=== PATIENT | female | born 1985 | race Caucasian/White ===

== ENCOUNTER 2021-05-03 10:30 | Emergency (ER) | payer MEDICAID, SELFPAY ==
--- NOTE | 2021-05-03 | ECG_ITS ---
Test Reason : CHEST PAIN Blood Pressure : / mmHG Vent. Rate : 073 BPM Atrial Rate : 073 BPM P-R Int : 168 ms QRS Dur : 076 ms QT Int : 390 ms P-R-T Axes : 049 033 026 degrees QTc Int : 429 ms Normal sinus rhythm Normal ECG No previous ECGs available Referred By: Brando Baker Electronically Signed By:MARELY SMITH
--- NOTE | ~2021-05-03 | XR_ITS ---
EXAMINATION: XR CHEST CLINICAL INFORMATION: Chest pain COMPARISON: None TECHNIQUE: 2 views of the chest were obtained. FINDINGS: The lungs are clear. There is no pneumothorax, pleural reaction, airspace consolidation, or effusion. The heart is normal in size. The costophrenic sulci are clear. The hilar and mediastinal contours are normal. There is a mild dextrocurvature lower thoracic spine. XR/XR chest 2V IMPRESSION: Unremarkable examination.
[2021-05-03 11:27] VITALS: BP 150/105; PULSE 81; RESP 18; TEMP 37.2; O2SAT 100; BMI 25.8
[2021-05-03 11:43] LABS: Glucose Urine UA NEG (NEG); Leukocyte Esterase Urine NEG (NEG); Nitrite Urine NEG (NEG); UACC Culture Trigger NO; Urine Blood TRACE (NEG); Urine Ketones NEG (NEG); Urine Protein NEG (NEG-TRACE)
--- NOTE | 2021-05-03 11:46 | ED_ITS ---
HPI - Chest Pain General Chief Complaint: Chest Pain Stated Complaint: CHEST PAIN Time Seen by Provider: 05/03/21 11:36 Source: patient Mode of arrival: ambulatory Limitations: no limitations History of Present Illness HPI narrative: With 35-year-old female presents emergency department complaining of chest pain. Patient states she has recently lost her father about 2 months ago from heart attack. She states that she has a history of heart attack and no other history of sudden . She denies cough or fever but states the past states she has had epigastric pain and burning. Patient seems to bland diet and has tried Tums with no relief she denies cough fever falls headache. She states she did start antidepressant recently that feels like she can not catch her breath and feels like her chest is caving at times. Patient states that she was camping a week and felt the sensation has not seen has not talked to anyone about this. After finishing the exam she states that she is also on her. Has had heavy periods for past 6 months. She has scheduled follow-up with her nib adjuster and just has not. MD complaint: chest heaviness Onset (ago): day(s) Timing of current episode: constant Prior episodes: No Related Data Allergies Allergy/AdvReac Type Severity Reaction Status Date / Time No Known Allergies Allergy Verified 05/03/21 11:31 Review of Systems Review of Systems: Review of systems: General: Patient denies any fever chills recent illness or falls Musculoskeletal: Denies back pain or body aches or other injuries HEENT: denies headache, runny nose, ear pain Respiratory: denies shortness of breath, cough Cardiovascular: no chest pain or palpitations : denies dysuria, frequency Abdomen: no nausea vomiting denies abdominal pain Extremities: no swelling, no pain Skin: no diaphoresis Yes all other systems are reviewed and are negative PMFSH Past Medical History Medical History (Updated 05/03/21 @ 13:09 by Brando Baker DO) No known health problems Social History Social History Alcohol intake: never Patient Tobacco Use Status: Never used Tobacco Use of substances other than those prescribed or required for medical reasons: No Advance Directives: No Advance Directives Information Provided: No Patient : No Physical Exam Vital Signs: Vital Signs: Last Vital Signs Temp 99 F 05/03/21 11:27 Pulse 88 05/03/21 12:50 Resp 12 05/03/21 12:50 BP 153/108 H 05/03/21 12:50 Pulse Ox 100 05/03/21 12:50 Body Mass Index 25.8 General: Well-appearing well-nourished in no signs of distress HEENT: Normocephalic atraumatic Neck: No signs of JVD, no masses no tenderness or lymphadenopathy Cardiovascular: Regular rate and rhythm Respiratory: Clear to auscultation bilaterally Abdomen: Soft nontender no masses. Extremities: Normal pedal pulses no signs of edema Skin: Dry warm no rashes Back: No tenderness full ROM MDM - Chest Pain MDM Narrative Medical decision making narrative: Patient likely with breathing and depression in addition to her chest pain she is complaining of 6 months of vaginal bleeding as well I do not think the patient is anemic she has normal vital signs and since the vaginal bleeding is going for past 6 months she has had several. Today do not think the patient warrants an ultrasound or pelvic exam at this time. She already has follow-up for that. I will workup for her chest pain sounds like this could be peptic ulcer disease or gastric ulcer disease as well as a depression little rule other causes including getting lipase pancreatitis checking LFTs getting troponin. With she is perk negative I do not think this patient is having PE. 1306 labs are all unremarkable patient refused the Ativan that was offered to her. 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 X-ray and labs were okay I explained all of his lab results with the patient she is feeling slightly better will have her follow up with primary care doctor. Differential Diagnosis Differential diagnosis: Likely pneumothorax, stable angina and chest pain Lab Data Result diagrams: 05/03/21 12:03 05/03/21 12:03 Labs: Lab Results 05/03/21 05/03/21 05/03/21 Range/Units 11:36 11:36 12:03 WBC 7.0 (4.8-10.8) X10*3/uL RBC 4.84 (4.20-5.50) X10*6/uL Hgb 14.5 (12.0-16.0) g/dl Hct 43.1 (37-47) % MCV 89.0 (80-98) fL MCH 30.0 (27.0-33.0) pg MCHC 33.6 (31.0-35.0) g/dl RDW 12.2 (11.0-16.0) % Plt Count 263 (160-400) X10*3/uL MPV 11.0 (9.4-12.3) fL Immature Gran % (Auto) 0.3 (0.0-0.4) % Neut % (Auto) 63.2 (45-73) % Lymph % (Auto) 28.5 (20-40) % Collin % (Auto) 6.6 (2-11) % Eos % (Auto) 1.0 (0-4) % Baso % (Auto) 0.4 (0-2) % Lymph # (Auto) 2.0 (1.2-4.9) X10*3/uL Collin # (Auto) 0.5 (0.1-1.2) X10*3/uL Eos # (Auto) 0.1 (0.0-0.4) X10*3/uL Baso # (Auto) 0.0 (0.0-0.2) X10*3/uL Abs Immat Gran (auto) 0.02 (0.00-0.03) X10*3/uL Absolute Neuts (auto) 4.4 (2.0-8.3) X10*3/uL Absolute Nucleated RBC 0.000 (0.0-0.012) X10*3/uL Nucleated RBC % (auto) 0.0 (0.0-0.2) /100WBC Sodium (135-145) mmol/L Potassium (3.3-5.1) mmol/L Chloride (96-108) mmol/L Carbon Dioxide (22-29) mmol/L Anion Gap (12-20) BUN (9-16) mg/dL Creatinine (0.5-1.4) mg/dL Estim Creat Clear Calc Estimated GFR Random Glucose (60-115) mg/dL Calcium (8.4-10.2) mg/dL Total Bilirubin (0.0-1.0) mg/dL Direct Bilirubin (0.0-0.5) mg/dL AST (5-31) U/L ALT (0-31) U/L Alkaline Phosphatase (39-117) U/L Troponin I High Sens (<3.5-17.0) ng/L Total Protein (6.5-8.0) g/dL Albumin (3.5-5.0) g/dL Lipase (8-78) U/L Urine Color YELLOW Urine Appearance CLEAR Urine pH 6.0 (5.0-8.0) Ur Specific [place] 1.010 (1.005-1.025) Urine Protein NEG (NEG-TRACE) MG/DL Urine Glucose (UA) NEG (NEG) MG/DL Urine Ketones NEG (NEG) MG/DL Urine Blood TRACE (NEG) Urine Nitrite NEG (NEG) Ur Leukocyte Esterase NEG (NEG) Urine RBC 0-2 (0) /HPF Urine WBC 0-2 (0-4) /HPF Ur Squamous Epith Cells TRACE /LPF Urine Bacteria NONE /LPF Urine Test NEGATIVE (NEGATIVE) 05/03/21 05/03/21 Range/Units 12:03 12:03 WBC (4.8-10.8) X10*3/uL RBC (4.20-5.50) X10*6/uL Hgb (12.0-16.0) g/dl Hct (37-47) % MCV (80-98) fL MCH (27.0-33.0) pg MCHC (31.0-35.0) g/dl RDW (11.0-16.0) % Plt Count (160-400) X10*3/uL MPV (9.4-12.3) fL Immature Gran % (Auto) (0.0-0.4) % Neut % (Auto) (45-73) % Lymph % (Auto) (20-40) % Collin % (Auto) (2-11) % Eos % (Auto) (0-4) % Baso % (Auto) (0-2) % Lymph # (Auto) (1.2-4.9) X10*3/uL [place]lin # (Auto) (0.1-1.2) X10*3/uL Eos # (Auto) (0.0-0.4) X10*3/uL Baso # (Auto) (0.0-0.2) X10*3/uL Abs Immat Gran (auto) (0.00-0.03) X10*3/uL Absolute Neuts (auto) (2.0-8.3) X10*3/uL Absolute Nucleated RBC (0.0-0.012) X10*3/uL Nucleated RBC % (auto) (0.0-0.2) /100WBC Sodium 141 (135-145) mmol/L Potassium 3.8 (3.3-5.1) mmol/L Chloride 106 (96-108) mmol/L Carbon Dioxide 26 (22-29) mmol/L Anion Gap 13 (12-20) BUN 8 L (9-16) mg/dL Creatinine 0.69 (0.5-1.4) mg/dL Estim Creat Clear Calc 120.1 Estimated GFR > 60 Random Glucose 89 (60-115) mg/dL Calcium 9.6 (8.4-10.2) mg/dL Total Bilirubin 0.8 (0.0-1.0) mg/dL Direct Bilirubin 0.2 (0.0-0.5) mg/dL AST 22 (5-31) U/L ALT 19 (0-31) U/L Alkaline Phosphatase 63 (39-117) U/L Troponin I High Sens < 3.5 (<3.5-17.0) ng/L Total Protein 6.9 (6.5-8.0) g/dL Albumin 4.3 (3.5-5.0) g/dL Lipase 25 (8-78) U/L Urine Color Urine Appearance Urine pH (5.0-8.0) Ur Specific [place] (1.005-1.025) Urine Protein (NEG-TRACE) MG/DL Urine Glucose (UA) (NEG) MG/DL Urine Ketones (NEG) MG/DL Urine Blood (NEG) Urine Nitrite (NEG) Ur Leukocyte Esterase (NEG) Urine RBC (0) /HPF Urine WBC (0-4) /HPF Ur Squamous Epith Cells /LPF Urine Bacteria /LPF Urine Test (NEGATIVE) ECG Data Rate 73 nsr normal intervals no signs of ischemia: Attestation: I personally reviewed and interpreted this ECG as follows: (Rate 73 nsr normal intervals no signs of ischemia) Scores Heart Score History: -0- slightly suspicious Age: -0- < or = 45 Risk factory: -0- no risk factors known Troponin: -0- < or = normal limit Discharge Plan Discharge Clinical Impression: Chest pain Patient Disposition: Home, Self-Care Instructions: Chest Pain (ED) Additional Instructions: Please call follow-up with her doctor your x-ray and labs are all unremarkable evening team to try Pepcid and Maalox at home. If you have any further concerns please do not hesitate to come back to the emergency department.
[2021-05-03 12:04] LABS: Appearance Urine CLEAR; Color Urine YELLOW; UPreg QC Valid YES; Urine Pregnancy NEGATIVE (NEGATIVE)
[2021-05-03] MEDS: Lactated Ringers 1,000 ML 999 ML IV (12:04)
[2021-05-03 12:07] LABS: RBC Urine 0-2 /HPF (0); Squamous Epithelial Cell Urine TRACE /LPF; WBC Urine 0-2 /HPF (0-4)
[2021-05-03 12:08] LABS: MANUAL DIFF FLAG NO
[2021-05-03] MEDS: Magnesium Hydrox/Alum Hydrox 30 ML ORAL.SUSP PO (12:10)
[2021-05-03] MEDS: Famotidine/PF 20 MG/2 ML VIAL IVPUSH (12:10)
[2021-05-03 12:23] LABS: Basophils Percent Auto 0.4 % (0-2); Eosinophils Absolute Auto 0.1 X10*3/uL (0.0-0.4); Hematocrit 43.1 % (37-47); Hemoglobin 14.5 g/dl (12.0-16.0); Imm Gran Abs Auto 0.02 X10*3/uL (0.00-0.03); Imm Gran Pct Auto 0.3 % (0.0-0.4); Lymphocytes Percent Auto 28.5 % (20-40); Mean Corpuscular HGB Conc 33.6 g/dl (31.0-35.0); Monocytes Absolute Auto 0.5 X10*3/uL (0.1-1.2); Monocytes Percent Auto 6.6 % (2-11); Neutrophils Absolute Auto 4.4 X10*3/uL (2.0-8.3); Neutrophils Percent Auto 63.2 % (45-73); Platelet Count 263 X10*3/uL (160-400); Red Blood Count 4.84 X10*6/uL (4.20-5.50); Red Cell Distribution Width 12.2 % (11.0-16.0)
[2021-05-03 12:30] LABS: Alanine Aminotransferase 19 U/L (0-31); Albumin Level 4.3 g/dL (3.5-5.0); Alkaline Phosphatase 63 U/L (39-117); Anion Gap 13 (12-20); Aspartate Amino Transferase 22 U/L (5-31); Bilirubin Direct 0.2 mg/dL (0.0-0.5); Bilirubin Total 0.8 mg/dL (0.0-1.0); Blood Urea Nitrogen 8 mg/dL (9-16); Calcium 9.6 mg/dL (8.4-10.2); Carbon Dioxide 26 mmol/L (22-29); Chloride 106 mmol/L (96-108); Creatinine Clr Calc Pharmacy 120.1; Estimated Glomerular Filt Rate > 60; Glucose Random 89 mg/dL (60-115); Lipase 25 U/L (8-78); Potassium 3.8 mmol/L (3.3-5.1); Sodium 141 mmol/L (135-145); Total Protein 6.9 g/dL (6.5-8.0)
[2021-05-03 12:35] LABS: Troponin-I High Sensitivity < 3.5 ng/L (<3.5-17.0)
[2021-05-03 12:50] VITALS: BP 153/108; PULSE 83; PULSE 88; RESP 12; O2SAT 100
== END 2021-05-03 13:43 | disposition home or self-care (01) ==
PROVIDERS: Emergency Provider Student in an Organized Health Care Education/Training Program; PCP Internal Medicine
DX: R07.9 Chest pain, unspecified (principal); N92.0 Excessive and frequent menstruation with regular cycle
CPT/HCPCS: 36415; 71046; 80048; 80076; 81001; 81003; 81025; 83690; 84484; 85025; 93005; 96361; 96374; 96375; 99284; 99285

== ENCOUNTER 2021-07-06 14:15 | Outpatient (REF) | payer MEDICAID, SELFPAY | END 2021-07-06 14:16 | disposition home or self-care (01) | LOC: HO.HMGCLDS 14:15 | PROVIDERS: PCP Internal Medicine; Visit Provider Internal Medicine | DX: Z20.822 Contact with and (suspected) exposure to COVID-19 (principal) | CPT/HCPCS: C9803; U0003; U0005 ==

== ENCOUNTER 2021-08-15 10:04 | Emergency (ER) | payer MEDICAID, SELFPAY ==
--- NOTE | ~2021-08-15 | XR_ITS ---
EXAMINATION: XR CHEST CLINICAL INFORMATION: Cough and fever COMPARISON: 05/03/2021 TECHNIQUE: Frontal view of the chest was obtained. FINDINGS: No significant abnormality is noted involving the heart, lungs, mediastinum, bony thorax or soft tissues. XR/XR chest 1V IMPRESSION: Unremarkable examination.
[2021-08-15 10:10] VITALS: BP 125/97; PULSE 91; RESP 16; TEMP 36.8; O2SAT 93; BMI 10.7
--- NOTE | 2021-08-15 10:35 | ED_ITS ---
HPI - General Adult General Chief complaint: General Medical Stated complaint: body aches Time Seen by Provider: 08/15/21 10:27 Source: patient Mode of arrival: ambulatory Limitations: no limitations History of Present Illness HPI narrative: 36 yo female here with complaints of gen weakness, cough, runny nose since Monday. Initially had fever up to 102 (first 2 days) now resolved. No chest pain, shortness of breath, vomiting, diarrhea, abdominal pain. Received J&J vaccine. 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 + Related Data Allergies Allergy/AdvReac Type Severity Reaction Status Date / Time No Known Allergies Allergy Verified 05/03/21 11:31 Review of Systems Review of Systems: Yes all other systems are reviewed and are negative Constitutional: Constitutional: Reports no additional constitutional complaints, Reports body ache(s), Reports chills, Reports fever(s), Denies headache(s) and Reports weakness Eyes: Eyes: Reports no additional eye complaints and Denies change in vision ENT: Reports system reviewed and no additional complaints, except as documented, Denies dizziness, Denies headache(s), Reports nasal congestion, Reports nasal discharge and Denies neck pain Cardiovascular: Cardiovascular: Reports no additional cardiovascular complain ts, Denies chest pain, Denies leg edema and Denies dyspnea Respiratory: Respiratory: Reports no additional respiratory complaints, Reports cough and Denies dyspnea Gastrointestinal: Gastrointestinal: Reports no additional gastrointestinal complaints, Denies abdominal pain, Denies diarrhea, Denies nausea and Denies vomiting Genitourinary: Genitourinary: Reports no additional female genitourinary complaints and Denies urinary incontinence Musculoskeletal: Musculoskeletal: Reports no additional musculoskeletal complaints, Denies back pain, Denies arthralgias, Denies joint swelling, Denies neck pain, Denies numbness and Denies tingling Integumentary/Breasts: Skin/Breast: Reports system reviewed and no additional complaints, except as docu and Denies rash Neurologic: Reports system reviewed and no additional complaints, except as documented, Denies Abnormal speech present, Denies dizziness, Denies headache(s), Denies numbness, Denies tingling and Reports weakness PMFSH Past Medical History Attestation statement: The following information was validated with the patient. Source: old records reviewed and nursing notes reviewed Medical History No known health problems Social History Social History Alcohol intake: never Patient Tobacco Use Status: Never used Tobacco Advance Directives: No Advance Directives Information Provided: No Physical Exam Vital Signs: Vital Signs: Last Vital Signs Temp 98.2 F 08/15/21 10:10 Pulse 95 08/15/21 10:51 Resp 16 08/15/21 10:10 BP 125/97 H 08/15/21 10:10 Pulse Ox 100 08/15/21 10:51 BMI result Body Mass Index 10.7 Const: General: cooperative, healthy appearing, comfortable and no acute distress Orientation/consciousness: patient oriented x3 Limitations: no limitations HENMT: Head: Yes normal to inspection Ears: hearing grossly normal bilaterally and TM's normal bilaterally General nose exam: Normal external nose present Face and sinus: Yes normal facial exam Mouth: Normal oral and palatal mucosa present Throat: Yes posterior oropharynx normal, Yes tonsils normal and Yes uvula midline Eyes: General: appearance normal, both eyes and all related structures Pupils: Equal, round and reactive pupils present Neck: Neck: Yes normal visual inspection Chest: Chest palpation & inspection: normal inspection of the chest Resp: Effort & Inspection: normal respiratory effort Auscultation: clear to auscultation bilaterally Cardio: Rate: regular rate Rhythm: regular rhythm Peripheral pulses: Peripheral pulses 2+ throughout GI: Inspection: Yes normal to inspection Palpation (GI): Soft to palpation and nontender Auscultation: normal bowel sounds Back/Spine/Pelvis: Thoracic/Lumbar Spine: thoracic and lumbar spine normal to inspection Skin: General skin exam: no rashes or lesions noted Neuro: General: patient oriented x3, no focal motor deficits and normal sensation to monofilament Cranial nerves: Yes Equal, round and reactive pupils present Cognition (Neuro): normal cognition Speech: No Abnormal speech present Gait exam (Neuro): Normal gait present Motor exam (neuro): 5/5 motor strength present throughout Extrem: General: Yes normal to inspection Course Course Course Narrative: 36 yo female here with flu like symptoms since Monday with COVID exposure. Will check COVID screen. Initial oxygen saturation 93%. Will check CXR, ur preg d/t concern. Repeat oxygen saturation 100%, ?error. 1150-COVID +. CXR shows no acute finding. No tachypnea, hypoxia or tachycardia with LS CTA. Reviewed worrisome signs/symptoms with patient and when to return to ED. Comfortable with plan for discharge home. Medical Decision Making Medical Records Medical records reviewed: Yes I reviewed the patient's medical records. Lab Data Lab results reviewed: Yes I reviewed the patient's lab results. Labs: Lab Results 08/15/21 08/15/21 Range/Units 10:25 10:42 Urine Test NEGATIVE (NEGATIVE) COVID-19 ([facility]) Positive A (Negative) COVID-19 Clin Com See Note Imaging Data Chest x-ray: Attestation: I personally reviewed and interpreted this imaging study as follows: Radiologist's impression: EXAMINATION: XR CHEST CLINICAL INFORMATION: Cough and fever COMPARISON: 05/03/2021 TECHNIQUE: Frontal view of the chest was obtained. FINDINGS: No significant abnormality is noted involving the heart, lungs, mediastinum, bony thorax or soft tissues. XR/XR chest 1V IMPRESSION: Unremarkable examination. ? Discharge Plan Discharge Clinical Impression: COVID-19 Patient Disposition: Home, Self-Care Instructions: COVID-19 (Coronavirus Disease 2019) (ED) Additional Instructions: Quarentine for 10 days from Monday Increase fluids, rest Alternate motrin/tylenol as needed Return for shortness of breath, chest pain Referrals: Chhaya Schroeder MD [Primary Care Provider] - 2 days Stand Alone Forms: Work/School Release Interventions: ED Discharge Assessment Last Done: 08/15/21 11:37 Discharge Date/Time: 08/15/21 11:45
[2021-08-15 10:45] LABS: COVID-19 Test Positive (Negative); IDNOW Serial# 08D9AD1C
[2021-08-15 10:51] VITALS: PULSE 95; O2SAT 100
[2021-08-15 10:54] LABS: UPreg QC Valid YES; Urine Pregnancy NEGATIVE (NEGATIVE)
== END 2021-08-15 11:45 | disposition home or self-care (01) ==
PROVIDERS: Nurse Practitioner Family; Emergency Provider Emergency Medicine; PCP Internal Medicine
DX: U07.1 COVID-19 (principal)
CPT/HCPCS: 36415; 71045; 81025; 87635; 99283

== ENCOUNTER 2021-08-18 14:00 | Emergency (ER) | payer MEDICAID, SELFPAY ==
[2021-08-18 14:40] VITALS: BP 152/98; PULSE 77; RESP 18; TEMP 37.1; O2SAT 98; BMI 25.0
--- NOTE | 2021-08-18 15:35 | ED_ITS ---
HPI - URI/Sore Throat General Chief Complaint: Upper Respiratory Symptoms Stated Complaint: covid + 4 wk preg head and body aches Time Seen by Provider: 08/18/21 15:35 Source: patient Mode of arrival: ambulatory Limitations: no limitations History of Present Illness HPI Narrative: 36 yo female who is currently 4 weeks presents to the ER with body aches and headaches. She was diagnosed with COVID-19 five days ago. 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 She states the worst part is severe headache and body aches. Headache is improved when her eyes are closed and she is lying down and worse when her eyes are open she looks and to light or hears any noises. She reports this is his similar to a spinal headache she had years ago with her epidural. She has no focal weakness, numbness, tingling, no vision changes, no vomiting. She is nauseous from her . She also reports intermittent shortness of breath and sharp central chest pains that come and go. She has been taking Tylenol for her pains with minimal improvement. MD elicited complaint: cough and other (body aches, headache) Pertinent past history: other (COVID-19) Description of mucous: clear Able to tolerate fluids by mouth: Yes Exacerbating factors: exertion Relieving factors: nothing Context: sick contacts Associated symptoms: headache, chest pain, shortness of breath and nausea Treatments prior to arrival: acetaminophen Related Data Allergies Allergy/AdvReac Type Severity Reaction Status Date / Time No Known Allergies Allergy Verified 05/03/21 11:31 Review of Systems Review of Systems: Constitutional: No Fever, No Chills ENT/Mouth: No sore throat, No Rhinorrhea, No Swallowing Difficulty Cardiovascular: + Chest Pain, + SOB, No Orthopnea, No Edema Respiratory: + Cough, No Sputum, No Wheezing, + dyspnea Gastrointestinal: No Nausea, No Vomiting, No Diarrhea, No abdominal Pain Genitourinary: No Dysuria, No Urinary Frequency, No Hematuria Musculoskeletal: No joint pain, + Myalgias Skin: No Skin Lesions, No rash Neuro: No Weakness, No Numbness, No Dizziness, + Headache Psych: No Anxiety/Panic, No Depression Heme/Lymph: No Bruising, No Lymphadenopathy Endocrine: No Polyuria, No Polydipsia PMFSH Past Medical History Medical History No known health problems Social History Social History Alcohol intake: unknown Patient Tobacco Use Status: Never used Tobacco Use of substances other than those prescribed or required for medical reasons: No Advance Directives: No Advance Directives Information Provided: No Physical Exam Vital Signs: Vital Signs: Last Vital Signs Temp 98.4 F 08/18/21 18:11 Pulse 70 08/18/21 18:11 Resp 20 08/18/21 18:11 BP 140/93 H 08/18/21 18:11 Pulse Ox 98 08/18/21 16:35 BMI result Body Mass Index 25.0 Appearance: Alert. Oriented X3. No acute distress. Eyes: Pupils equal, round and reactive to light. ENT: Pharynx normal. Neck: Normal inspection. Neck supple. CVS: Normal heart rate and rhythm. Pulses normal. Respiratory: No respiratory distress. Breath sounds normal. Abdomen: Soft and nontender. +BS x4 Skin: Skin warm and dry. Normal skin color. Normal skin turgor. No rashes. Extremities: No lower extremity edema. No calf tenderness Neuro: Oriented X 3. No motor deficit. No sensory deficit. Course Course Course Narrative: 36 y/o female who was diagnosed with COVID-19 five days ago presents to the ER with body aches, headaches, intermittent SOB and chest pains. VS are normal on arrival. Doubt PE but given she is will need to r/o PE. She is not tachycardic or hypoxic. No calf tenderness. Reevaluation(s) Reevaluation #1: CRP 0.1. DDIMER <150 - very reassuring for mild COVID disease and very low clinical suspicion for PE. She continues to c/o headache and is now very nauseated. Will give Zofran and Benadryl. Reevaluation #2: Patient eloped from the emergency room prior to this discharge being discussed. MDM - URI/Sore Throat Lab Data Result diagrams: 08/18/21 16:28 08/18/21 16:28 Labs: Lab Results 08/18/21 08/18/21 08/18/21 Range/Units 16:28 16:28 18:10 WBC 8.0 (4.8-10.8) X10*3/uL RBC 5.30 (4.20-5.50) X10*6/uL Hgb 15.9 (12.0-16.0) g/dl Hct 46.4 (37.0-47.0) % MCV 87.5 (80.0-98.0) fL MCH 30.0 (27.0-33.0) pg MCHC 34.3 (31.0-35.0) g/dl RDW 11.6 (11.0-16.0) % Plt Count 222 (160-400) X10*3/uL MPV 10.7 (9.4-12.3) fL Immature Gran % (Auto) 0.4 (0.0-0.4) % Neut % (Auto) 64.8 (45-73) % Lymph % (Auto) 29.2 (20-40) % [place] % (Auto) 5.1 (2-11) % Eos % (Auto) 0.4 (0-4) % Baso % (Auto) 0.1 (0-2) % Lymph # (Auto) 2.3 (1.2-4.9) X10*3/uL [place] # (Auto) 0.4 (0.1-1.2) X10*3/uL Eos # (Auto) 0.0 (0.0-0.4) X10*3/uL Baso # (Auto) 0.0 (0.0-0.2) X10*3/uL Abs Immat Gran (auto) 0.03 (0.00-0.03) X10*3/uL Absolute Neuts (auto) 5.2 (2.0-8.3) x10*3/uL Absolute Nucleated RBC 0.000 (0.0-0.012) X10*3/uL Nucleated RBC % (auto) 0.0 (0.0-0.2) /100WBC D-Dimer High Sensitivty < 150 NG/ML Sodium 141 (135-145) mmol/L Potassium 4.4 (3.3-5.1) mmol/L Chloride 107 (96-108) mmol/L Carbon Dioxide 25 (22-29) mmol/L Anion Gap 13 (12-20) BUN 7 L (9-16) mg/dL Creatinine 0.66 (0.5-1.4) mg/dL Estim Creat Clear Calc 118.8 Estimated GFR > 60 Random Glucose 90 (60-115) mg/dL Calcium 9.5 (8.4-10.2) mg/dL Magnesium 2.2 (1.6-2.6) mg/dL Ferritin 38 (10-122) ng/mL C-Reactive Protein 0.10 (< or = 0.50) mg/dL Critical Care Time Critical Care Time Critical Care Time: No Discharge Plan Discharge Clinical Impression: COVID-19, Headache Patient Disposition: Elopement Instructions: Covid-19 Viral Syndrome and Novel Coronavirus (ED) Hey/Ath, General Headache (ED) Additional Instructions: Your lab workup today was normal. Your inflammatory markers for COVID were negative which is very reassuring. Continue to take Tylenol 975 mg every 6 hours for your headache. Unfortunately because of your there are no other medications that are safe. Your headaches and body aches will get better as you recover from COVID. Rest and stay hydrated. Make sure you are drinking plenty of water. Referrals: Chhaya Schroeder MD [Primary Care Provider] - 2 days (COVID, )
[2021-08-18] MEDS: Acetaminophen 325 MG TABLET 975 MG PO (16:25)
[2021-08-18] MEDS: Ondansetron ODT 4 MG TAB.RAPDIS TRANSLINGU (16:25)
[2021-08-18] MEDS: 0.9 % Sodium Chloride 1,000 ML 999 ML IVCONT (16:25)
[2021-08-18 16:33] VITALS: O2SAT 98
[2021-08-18 16:35] VITALS: BP 135/90; PULSE 98; RESP 17; O2SAT 98
[2021-08-18 16:36] LABS: MANUAL DIFF FLAG NO
--- NOTE | 2021-08-18 16:36 | PC.NURSE ---
Patient reports COVID symptoms x 1 week, diagnosed on Monday. Patient is and reports body aches and headache. Mild cough. Respirations regular and even. Lung sounds clear. Ivy PROCTOR at bedside. IV established and labs drawn. Hung NS 1L and medicated with Zofran and Tylenol. Patient resting on recliner, awaiting labwork.
[2021-08-18 16:38] LABS: Basophils Percent Auto 0.1 % (0-2); Eosinophils Percent Auto 0.4 % (0-4); Hematocrit 46.4 % (37.0-47.0); Hemoglobin 15.9 g/dl (12.0-16.0); Imm Gran Abs Auto 0.03 X10*3/uL (0.00-0.03); Imm Gran Pct Auto 0.4 % (0.0-0.4); Lymphocytes Absolute Auto 2.3 X10*3/uL (1.2-4.9); Lymphocytes Percent Auto 29.2 % (20-40); Mean Corpuscular HGB Conc 34.3 g/dl (31.0-35.0); Mean Corpuscular Volume 87.5 fL (80.0-98.0); Mean Platelet Volume 10.7 fL (9.4-12.3); Monocytes Absolute Auto 0.4 X10*3/uL (0.1-1.2); Monocytes Percent Auto 5.1 % (2-11); Neutrophils Absolute Auto 5.2 x10*3/uL (2.0-8.3); Neutrophils Percent Auto 64.8 % (45-73); Platelet Count 222 X10*3/uL (160-400); Red Cell Distribution Width 11.6 % (11.0-16.0)
[2021-08-18 16:59] LABS: Anion Gap 13 (12-20); Blood Urea Nitrogen 7 mg/dL (9-16); Calcium 9.5 mg/dL (8.4-10.2); Carbon Dioxide 25 mmol/L (22-29); Chloride 107 mmol/L (96-108); Creatinine Clr Calc Pharmacy 118.8; Estimated Glomerular Filt Rate > 60; Glucose Random 90 mg/dL (60-115); Magnesium 2.2 mg/dL (1.6-2.6); Potassium 4.4 mmol/L (3.3-5.1); Sodium 141 mmol/L (135-145)
[2021-08-18 17:12] LABS: Ferritin 38 ng/mL (10-122)
[2021-08-18 18:11] VITALS: BP 140/93; PULSE 70; RESP 20; TEMP 36.9
[2021-08-18 18:31] LABS: D Dimer High Sensitivity < 150 NG/ML
[2021-08-18] MEDS: ondansetron HCL 4 MG/2 ML VIAL IVPUSH (19:01)
[2021-08-18] MEDS: diphenhydrAMINE HCL 50 MG/ML VIAL 25 MG IVPUSH (19:01)
--- NOTE | 2021-08-18 20:34 | PC.NURSE ---
Pt. left department prior to discharge instructions. Left with IV in place. Unable to locate IV in room or trash. Called patient without an answer. [facility].
== END 2021-08-18 20:37 | disposition left against medical advice (07) ==
PROVIDERS: Physician Assistant; Emergency Provider Emergency Medicine; PCP Internal Medicine
DX: O98.511 Other viral diseases complicating pregnancy, first trimester (principal); U07.1 COVID-19; O26.891 Other specified pregnancy related conditions, first trimester; R51.9 Headache, unspecified; Z3A.01 Less than 8 weeks gestation of pregnancy
CPT/HCPCS: 36415; 80048; 82728; 83735; 85025; 85379; 86140; 96361; 96374; 96375; 99284; 99285; J1200; J2405